=== PATIENT | female | born 2005 | race Caucasian/White ===

== ENCOUNTER 2024-02-29 19:00 | Inpatient (IN) | payer OTHER ==
[2024-02-29 19:38] VITALS: BMI 37.8
[2024-02-29] MEDS ORDERED: hydrALAZINE 20 MG/ML VIAL SLOW IVP PRN ×3 (20:03→20:54)
[2024-02-29] MEDS ORDERED: Lorazepam 2 MG/ML VIAL SLOW IVP PRN (20:03)
[2024-02-29] MEDS ORDERED: Calcium Gluc 4.6 MEQ/10 ML (100 MG/ML) SLOW IVP PRN (20:03)
[2024-02-29] MEDS ORDERED: Lidocaine 1% (PF) 30 ML VIAL SC PRN (20:53)
[2024-02-29] MEDS ORDERED: Promethazine HCl 25 MG/ML VIAL IM PRN (20:54)
[2024-02-29] MEDS ORDERED: fentaNYL 50 mcg/mL 1 mL Vial SLOW IVP PRN (20:54)
[2024-02-29] MEDS ORDERED: Zolpidem Tartrate 5 MG TAB PO PRN (20:54)
[2024-02-29] MEDS ORDERED: Ondansetron PF 4 MG/2 ML Vial IVP PRN (20:54)
[2024-02-29] MEDS: Lactated Ringer's 1,000 ML IV SCH (21:00)
[2024-02-29] MEDS ORDERED: Oxytocin 30 units/NS 500 ML 500 ML IV SCH ×2 (21:00)
[2024-02-29] MEDS: Misoprostol 100 MCG TAB VAG SCH (21:40)
[2024-02-29 21:43] LABS: #Basophils 0.02 10x3/uL (0.0-0.2); #Eosinphils 0.04 10x3/uL (0.0-0.5); #Monocytes 0.77 10x3/uL (0.0-1.1); #Neutrophils 7.65 10x3/uL (1.5-8.4); %Basophils 0.2 % (0.0-2.0); %Eosinophils 0.4 % (0.0-6.0); %Lymphocytes 20.1 % (18.0-47.0); %Monocytes 7.2 % (0.0-10.0); %Neutrophils 71.4 % (40.0-75.0); Hematocrit 30.2 % (34.9-44.5); Hemoglobin 9.4 g/dL (12.0-15.5); Mean Corpuscular HGB CONC 31.1 g/dL (32.0-36.0); Mean Platelet Volume 9.6 fL (7.4-10.4); Platelet Count 307 10x3/uL (150-450); RBC Distribution Width 15.2 % (11.5-14.5); Red Blood Cell (RBC) Count 4.08 10x6/uL (3.90-5.03); White Blood Cell (WBC) Count 10.7 10x3/uL (3.5-10.5)
[2024-02-29 21:48] LABS: Creatinine, Urine 201.09 mg/dL (47-110)
[2024-02-29 21:57] LABS: ALT (SGPT) 11 U/L (8-55); AST (SGOT) 14 U/L (5-30); Albumin 2.5 g/dL (3.5-5.0); Alkaline Phosphatase 177 U/L (40-100); Anion Gap 13 mmol/L (10-20); BUN (Urea Nitrogen) 11 mg/dL (8.4-21.0); Bilirubin, Total 0.2 mg/dL (0.2-1.2); Calc. Creatinine Clearance 198 mL/min (70-130); Calcium 8.4 mg/dL (7.8-10.44); Carbon Dioxide 20 mmol/L (22-29); Chloride 110 mmol/L (98-107); Estimated GFR 123; Protein, Total 5.5 g/dL (6.0-8.3); Sodium 139 mmol/L (136-145)
[2024-02-29 22:08] LABS: Syphilis Antibody Nonreactive (Nonreactive); Syphilis Antibody Index 0.05 S/CO (<1.00 Non-Reactive)
[2024-02-29 22:10] LABS: HBsAg Index 0.19 S/CO (0-0.99); Hep B Surf Ag - L&D Non-Reactive S/CO (NonReactive)
[2024-02-29 22:11] LABS: Anisocytosis SLIGHT = 6-15 cells (100X) (0-5/hpf); Microcytosis SLIGHT = 6-15 cells (100X) (0-5/hpf); Ovalocytes SLIGHT = 2-5 cells (100X) (0-1/hpf)
[2024-02-29 22:12] LABS: Platelet Adequacy Comment Appears Adequate
[2024-02-29 22:18] LABS: Glucose 75 mg/dL (70-105)
[2024-03-01] MEDS: hydrALAZINE 20 MG/ML VIAL SLOW IVP PRN (01:15)
[2024-03-01] MEDS: Magnesium Sulfate 20 gm/500 ml 20 GM/500 ML BAG ONE ×3 (01:20→20:18)
[2024-03-01] MEDS: Misoprostol 100 MCG TAB ONE ×2 (12:28→20:17)
[2024-03-01] MEDS: Acetaminophen 500 MG TAB PO PRN (15:22)
[2024-03-01] MEDS: Labetalol HCl 100 MG/20 ML VIAL SLOW IVP PRN ×2 (19:18→19:58)
[2024-03-01] MEDS ORDERED: Ondansetron PF 4 MG/2 ML Vial IVP PRN (23:34)
[2024-03-01] MEDS ORDERED: Promethazine HCl 25 MG/ML VIAL IM PRN (23:34)
[2024-03-01] MEDS ORDERED: ePHEDrine Sulfate 50 MG/10 ML VIAL SLOW IVP PRN (23:34)
[2024-03-01] MEDS ORDERED: Acetaminophen 325 MG TAB PO PRN (23:34)
[2024-03-01] MEDS ORDERED: Naloxone HCl 0.4 mg/ml Vial IVP PRN ×2 (23:34)
[2024-03-01] MEDS ORDERED: Moisturizing Cream (Eucerin) 113 GM JAR TOP PRN (23:34)
[2024-03-01] MEDS ORDERED: diphenhydrAMINE 50 MG/ML VIAL IVP PRN (23:34)
[2024-03-01] MEDS ORDERED: Lactated Ringer's 500 ML IV PRN (23:34)
[2024-03-01] MEDS: fentaNYL 2 mcg/Ropivacaine 0.2% Epidural 100 ML CADD EPIDURAL SCH (23:35)
[2024-03-01] MEDS ORDERED: Communication Order-Pharmacy FS SCH (23:45)
[2024-03-02] MEDS: Magnesium Sulfate 20 gm/500 ml 20 GM/500 ML BAG ONE (04:49)
[2024-03-02] MEDS ORDERED: Milk Of Magnesia 30 ML UDCUP PO PRN (09:14)
[2024-03-02] MEDS ORDERED: diphenhydrAMINE 25 MG CAP PO PRN (09:14)
[2024-03-02] MEDS ORDERED: Ondansetron PF 4 MG/2 ML Vial IVP PRN (09:14)
[2024-03-02] MEDS ORDERED: hydrALAZINE 20 MG/ML VIAL SLOW IVP PRN (09:14)
[2024-03-02] MEDS ORDERED: Preparation H Ointment 28 GM TUBE PR PRN (09:14)
[2024-03-02] MEDS ORDERED: Bisacodyl 10 MG SUPP PR PRN (09:14)
[2024-03-02] MEDS ORDERED: Lanolin Ointment 7 GM TUBE TOP PRN (09:14)
[2024-03-02] MEDS ORDERED: Oxytocin 30 units/NS 500 ML 500 ML IV SCH (09:15)
[2024-03-02] MEDS: Misoprostol 200 MCG TAB ONE ×2 (09:55→15:40)
[2024-03-02] MEDS: fentaNYL 50 mcg/mL 1 mL Vial ONE ×2 (14:45→15:43)
[2024-03-02] MEDS: Tranexamic Acid 1,000 MG/10 ML VIAL ONE (14:50)
[2024-03-02] MEDS: Carboprost 250 MCG/ML AMP ONE (14:55)
[2024-03-02] MEDS: Diphenoxylate HCl/Atropine Tablet PO PRN (15:29)
[2024-03-02 15:34] LABS: Hematocrit 22.2 % (34.9-44.5); Mean Corpuscular HGB CONC 31.5 g/dL (32.0-36.0); Mean Corpuscular Hemoglobin 23.3 pg (27.0-33.0); Mean Platelet Volume 9.5 fL (7.4-10.4); Platelet Count 270 10x3/uL (150-450); RBC Distribution Width 15.6 % (11.5-14.5); White Blood Cell (WBC) Count 14.8 10x3/uL (3.5-10.5)
[2024-03-02 15:54] LABS: D-Dimer Test 5.8 mcg/mL (0.19-0.50); INR-International Normal Ratio 0.9; PTT 22.5 sec (22.0-33.0); Prothrombin Time 9.9 sec (9.5-12.1)
[2024-03-02] MEDS: Ketorolac Tromethamine 30 MG (1 mL) VIAL ONE (16:04)
[2024-03-02 19:27] LABS: Hematocrit 23.1 % (34.9-44.5); Hemoglobin 7.4 g/dL (12.0-15.5); Mean Corpuscular Hemoglobin 24.1 pg (27.0-33.0); Mean Corpuscular Volume 75.2 fL (81.6-98.3); Mean Platelet Volume 9.2 fL (7.4-10.4); Platelet Count 232 10x3/uL (150-450); RBC Distribution Width 16.1 % (11.5-14.5); Red Blood Cell (RBC) Count 3.07 10x6/uL (3.90-5.03); White Blood Cell (WBC) Count 16.6 10x3/uL (3.5-10.5)
[2024-03-02 19:40] LABS: D-Dimer Test 4.09 mcg/mL (0.19-0.50); INR-International Normal Ratio 0.9; PTT 26.4 sec (22.0-33.0); Prothrombin Time 10.1 sec (9.5-12.1)
[2024-03-02] MEDS: Ibuprofen 800 MG TAB PO SCH (23:30)
[2024-03-02] MEDS ORDERED: HYDROcodone/Acetaminophen 5/325 mg Tablet PO PRN (23:36)
[2024-03-03] MEDS: NIFEdipine XL 30 MG ER.TAB PO SCH (07:00)
[2024-03-03] MEDS: Magnesium Sulfate 20 gm/500 ml 20 GM/500 ML BAG ONE (07:01)
[2024-03-03] MEDS: Ferrous Sulfate 325 MG TAB PO SCH (07:01)
[2024-03-03] MEDS: Docusate 100 MG CAP PO SCH (07:02)
[2024-03-03] MEDS: fentaNYL/Ropivacaine Epidural 100 ML ONE (07:03)
[2024-03-03] MEDS: Boostrix 0.5 ML (Tdap) VIAL (>/=7 yrs of age) IM ONE (07:08)
[2024-03-03] MEDS ORDERED: Famotidine/PF 20 mg/2ml Vial SLOW IVP PRN (07:52)
[2024-03-03] MEDS ORDERED: Bicitra 30 ML UDCUP PO PRN (07:52)
[2024-03-03] MEDS ORDERED: CEFAZOLIN 2 GM in Sodium Chloride 0.9% 100 ML IVPB SCH (08:00)
[2024-03-03] MEDS: HYDROcodone/Acetaminophen 5/325 mg Tablet PO PRN (12:36)
[2024-03-03] MEDS: Prenatal Vitamin 1 TAB PO SCH (22:39)
[2024-03-04] MEDS: Benzocaine-Menthol 82.5 ML CAN TOP PRN (02:25)
[2024-03-04] MEDS: Ibuprofen 800 MG TAB PO SCH (02:25)
[2024-03-04 06:46] LABS: #Basophils 0.04 10x3/uL (0.0-0.2); #Eosinphils 0.28 10x3/uL (0.0-0.5); #Monocytes 0.84 10x3/uL (0.0-1.1); %Basophils 0.3 % (0.0-2.0); %Eosinophils 2.3 % (0.0-6.0); %Lymphocytes 20.9 % (18.0-47.0); %Monocytes 6.9 % (0.0-10.0); %Neutrophils 68.3 % (40.0-75.0); Hematocrit 21.4 % (34.9-44.5); Hemoglobin 6.9 g/dL (12.0-15.5); Mean Corpuscular HGB CONC 32.2 g/dL (32.0-36.0); Mean Corpuscular Hemoglobin 25.4 pg (27.0-33.0); Mean Corpuscular Volume 78.7 fL (81.6-98.3); Mean Platelet Volume 9.8 fL (7.4-10.4); Platelet Count 254 10x3/uL (150-450); RBC Distribution Width 17.1 % (11.5-14.5); Red Blood Cell (RBC) Count 2.72 10x6/uL (3.90-5.03); White Blood Cell (WBC) Count 12.2 10x3/uL (3.5-10.5)
[2024-03-04] MEDS: Boostrix 0.5 ML (Tdap) VIAL (>/=7 yrs of age) IM ONE (07:40)
[2024-03-04] MEDS: Ferrous Sulfate 325 MG TAB PO SCH (08:07)
[2024-03-04 11:36] VITALS: BP 134/82; TEMP 98.2
== END 2024-03-04 15:20 | disposition home or self-care (01) | DRG 768 ==
LOC: CSHLD/OP 19:00 → CSHLD 20:03 → CSHPP 03-03 12:25
PROVIDERS: ADMIT Obstetrics & Gynecology; ATTEND Obstetrics & Gynecology
PROC: 10E0XZZ Delivery of Products of Conception, External Approach (ICD-10-PCS; principal; 2024-03-02)
PROC: 0W3R7ZZ Control Bleeding in Genitourinary Tract, Via Natural or Artificial Opening (ICD-10-PCS; 2024-03-02)
DX: O13.4 Gestational [pregnancy-induced] hypertension without significant proteinuria, complicating childbirth (principal); Z37.0 Single live birth; D62 Acute posthemorrhagic anemia; Z3A.37 37 weeks gestation of pregnancy; O72.1 Other immediate postpartum hemorrhage; O14.14 Severe pre-eclampsia complicating childbirth; O99.03 Anemia complicating the puerperium; O70.0 First degree perineal laceration during delivery
CPT/HCPCS: 36415; 36430; 51702; 80053; 82570; 84156; 85025; 85027; 85049; 85300; 85362; 85384; 85610; 85730; 86780; 86850; 86900; 86901; 87340; 99285; J0360; J1885; J3010; J3475; J3490; J7120; P9012; P9016

== ENCOUNTER 2024-06-17 19:28 | Emergency (ER) | payer OTHER ==
[2024-06-17] MEDS ORDERED: Ibuprofen 200 MG TAB ONE (22:02)
[2024-06-17 22:34] LABS: Hematocrit 34.9 % (34.9-44.5); Hemoglobin 11.7 g/dL (12.0-15.5); Mean Corpuscular HGB CONC 33.5 g/dL (32.0-36.0); Mean Corpuscular Hemoglobin 25.2 pg (27.0-33.0); Mean Corpuscular Volume 75.2 fL (81.6-98.3); Mean Platelet Volume 9.8 fL (7.4-10.4); Platelet Count 144 10x3/uL (150-450); RBC Distribution Width 14.9 % (11.5-14.5); Red Blood Cell (RBC) Count 4.64 10x6/uL (3.90-5.03)
[2024-06-17 23:17] LABS: Anisocytosis SLIGHT = 6-15 cells (100X) (0-5/hpf); Band 31 % (5-11); Lymphocytes 28 % (28-48); MDiff Complete? YES; Metamyelocyte 1 % (0-0); Microcytosis SLIGHT = 6-15 cells (100X) (0-5/hpf); Monocytes 6 % (0-4); Neutrophil 13 % (31-61); Ovalocytes SLIGHT = 2-5 cells (100X) (0-1/hpf); Platelet Adequacy Comment Appears Decreased; Polychromasia SLIGHT = 2-3 cells (100X) (0-2/hpf); Reactive Lymphocytes 20 % (0-10)
[2024-06-18] MEDS ORDERED: Doxycycline 100 MG CAP PO SCH (00:30)
== END 2024-06-17 23:34 | disposition home or self-care (01) ==
LOC: CSHERS 19:28
DX: R50.9 Fever, unspecified (principal); R21 Rash and other nonspecific skin eruption
CPT/HCPCS: 85025; 86140; 86618; 87081; 87430; 99283